=== PATIENT | male | born 1985 | race Caucasian/White ===

== ENCOUNTER 2017-02-28 15:48 | Emergency (ER) | payer MEDICAID, OTHER ==
[~2017-02-28] VITALS: Ht 170.2 cm; Wt 61.6 kg
[2017-02-28 16:08] VITALS: BP 123/66
[2017-02-28] MEDS ORDERED: KETOROLAC 30 MG/1 ML ONE (18:08)
[2017-02-28] MEDS ORDERED: KETOROLAC 30 MG/1 ML IM ONE (18:30)
== END 2017-02-28 18:39 | disposition home or self-care (01) ==
LOC: ED 18:37
DX: S93.611A Sprain of tarsal ligament of right foot, initial encounter (principal); Z88.0 Allergy status to penicillin; V03.00XA Pedestrian on foot injured in collision with car, pick-up truck or van in nontraffic accident, initial encounter; Y93.01 Activity, walking, marching and hiking; Y99.8 Other external cause status; Y92.488 Other paved roadways as the place of occurrence of the external cause
CPT/HCPCS: 73630; 96372; 99284; J1885